=== PATIENT | male | born 1945 | race Caucasian/White ===

== ENCOUNTER 2023-10-14 08:20 | Inpatient (IN) | payer MEDICARE, SELFPAY ==
[2023-10-13] VITALS (10 sets, daily range): BP systolic 134–163; BP diastolic 74–95; BMI 31.4; BMI 30.6; BMI 30.7
[2023-10-13 14:02] LABS: % Basophils 0.2 % (0-2); % Eosinophils 1.1 % (0-6); % Immature Granulocytes 0.4 % (0-0.5); % Lymphocytes 11.5 % (20.5-51.1); % Monocytes 8.3 % (1.7-9.3); % Neutrophils 78.5 % (42.2-75.2); Absolute Eosinophils 0.1 10^3/uL (0-0.7); Absolute Lymphocytes 0.9 10^3/uL (1.2-3.4); Absolute Monocytes 0.7 10^3/uL (0.1-0.6); Absolute Neutrophils 6.3 10^3/uL (1.4-6.5); Hematocrit 43.2 % (39.0-52.0); Hemoglobin 15.1 g/dL (13.0-18.0); Mean Corpuscular Hgb 31.5 pg (27.0-31.0); Mean Platelet Volume 11.8 fL (7.4-10.4); Nucleated Red Blood Cells % 0 % (-); Platelet Count 168 10^3/uL (130-400); Red Cell Dist. Width 12.7 % (11.5-14.5); White Blood Cell Count 8.1 10^3/uL (4.8-10.8)
[2023-10-13 14:26] LABS: ALT (SGPT) 31 U/L (0-50); AST (SGOT) 33 U/L (17-59); Albumin 3.9 g/dl (3.5-5.0); Alkaline Phosphatase 90 U/L (38-126); Blood Urea Nitrogen 24 mg/dl (9-20); Carbon Dioxide 27 mmol/L (22-30); Chloride 108 mmol/L (98-107); Estimated Creatinine Clearance 60 ml/min; Glucose 95 mg/dl (70-99); Potassium 3.9 mmol/L (3.5-5.1); Sodium 139 mmol/L (135-145); Total Protein 6.1 g/dl (6.3-8.2); eGFR > 60.00
[2023-10-13 14:30] LABS: Troponin I 0.018 ng/ml
--- NOTE | 2023-10-13 15:20 | ED.GENMED ---
History of Present Illness
<TONY Castillo Jr. Last Filed: 10/15/23 09:11>
General
Chief Complaint: Chest Pain
Source: patient
Exam Limitations: none
Time Seen by Provider: 10/13/23 13:45
Nursing documentation reviewed up to this point in time: agreed with
History of Present Illness
History of Present Illness:
77-year-old male presenting to the emergency department today with concerns of an episode where he had chest pressure and heavy sweating when he was walking out of a store earlier today lasted for short period time but has been significantly
improving now asymptomatic prior to my assessment. He took his normal aspirin today which was a baby aspirin. Denies associated shortness of breath nausea or vomiting.
Review of Systems
<TONY Castillo Jr. Last Filed: 10/15/23 09:11>
Review of Systems
Allergies reviewed?: Yes
All Other Systems: ROS reviewed and negative except as documented in HPI and ROS
Phy Exam
<TONY Castillo Jr. Last Filed: 10/15/23 09:11>
Physical Exam
Physical Exam:
GENERAL: Alert , in no apparent distress
EYE: pupils equal and reactive
NECK: Supple, no significant adenopathy.
ENT: o/p clr, mmm.
CARDIAC: Regular rate and rhythm .
LUNGS: Clear breath sounds bilaterally, no acute respiratory distress, no wheezes/rales/rhonchi
ABDOMEN: Soft, without focal tenderness, no r/g, no cvat
NEUROLOGICAL: Alert and oriented, no focal neuro deficits
SKIN: Warm and dry, skin intact.
MUSCULOSKELETAL: No edema, well perfused.
PSYCH: Normal and appropriate interaction.
Scores
<TONY Castillo Jr. Last Filed: 10/15/23 09:11>
Heart Score for Chest Pain Patients
Heart Score for Chest Pain Patients: 7
Heart Score Risk: 72.7 % MACE over next 6 weeks
<Carmella Gale SCHEDULE MANAGER - Last Filed: 10/14/23 08:53>
Heart Score for Chest Pain Patients
STEMI patient?: No
History: Moderately Suspicious
ECG: Nonspecific Repolarization
Age: >/= 65 years
Risk Factors: >/= 3 Risk Factors or History of CAD
Troponin: >1 - <3 x Normal Limit
Heart Score for Chest Pain Patients: 7
Heart Score Risk: 72.7 % MACE over next 6 weeks
Course
<MIAH Castillo Jr.C - Last Filed: 10/15/23 09:11>
Orders/Labs/Results
Orders:
Orders
10/13/23
CAD Lower Risk of FARAH Video Routine
10/13/23 12:55
ECG [Electrocardiogram (*1)] Urgent
Reason for Study: Chest Pain
EKG- Treatment ONCE
10/13/23 13:32
Cardiac Monitoring- Treatment ONCE
10/13/23 13:45
Chest [CR Chest - 2 Views ] Urgent
Comment:
Reason For Exam: cp
10/13/23 13:46
Complete Blood Count/With Diff Urgent
Comprehensive Metabolic Panel Urgent
Troponin I Urgent
10/13/23 Dinner
Cholesterol Lowering
At Your Request: Full Participation
Cholesterol Lowering: Sodium, 2 Gram
10/13/23 15:55
EKG [Electrocardiogram (*1)] Urgent
Reason for Study: Chest Pain
EKG- Treatment ONCE
10/13/23 16:12
Troponin I Urgent
10/13/23 17:35
CARDIOLOGY CONSULT Urgent
Consulting Provider: Doug Treadwell
Was physician already notified: Yes
Reason for consult: trending up troponin, episode CP, diaphoresis
10/13/23 17:48
Heparin 4,000 units IV NOW STA
Nursing to Place Non Medication Order As Directed
Physician Order: PTT 6 hours after initial start of Heparin infusion
Above order entered?: Yes
10/13/23 17:52
PTT Urgent
Comment: Obtain baseline before beginning heparin infusion if not already collected
10/13/23 17:56
Admit/Transfer Patient As Directed
Co-Sign Provider:
Level of Care: Observation services
Assign to:: Telemetry
Physician / Group: roberto
Diagnosis: NSTEMI
Reason for Telemetry: Chest Pain syndromes
Date to Stop Telemetry: 10/15/23
Time to Stop Telemetry: 11:00
10/13/23 17:57
Code Status As Directed
Resuscitation Status: Full Code
PRN Pain Medication Management As Directed
May give lesser potent ordered pain med per pt: Yes
preference::
Protocol:: Medication orders for pain may be administered in a
manner that supports deferring to patient preference
when the pt is:
- Requesting an ordered lesser potent pain medication.
Least to most potent pain medications are defined
as: acetaminophen < NSAID < tramadol < opioids
(morphine, oxycodone, hydromorphone).
- Requesting a lesser dose of the same medication IF
ORDERED.
- Requesting a less intrusive route of administration
if both routes are prescribed by the provider (PO <
IV).
10/13/23 18:00
Heparin 42141 Units/250 ml 25,000 units in 250 ml IV PER PROTOCOL
Weight to be used for heparin protocol in kilograms (kg):: 90.9
Protocol:: Cardiac Tx/Acute Coronary
PTT Goal Range to be used:: PTT 73 to 111 seconds
Order type:: Initial
INITIAL Infusion Dose (UNITS/KG/hr) & then follow protocol:: 12 units/kg/hr
Infusion Dose in UNITS/hr & then follow protocol (UNITS/hr):: 1,000
INFUSION RATE in mL/hr & then follow protocol (mL/hr):: 10
PTT less than or equal to 64 seconds:: Increase rate by 200 units/hr (+ 2 mL/hr)
PTT 64.1 to 72.9 seconds:: Increase rate by 100 units/hr (+ 1 mL/hr)
PTT 73 to 111 seconds:: Target Range. No change in rate.
PTT 111.1 to 130.9 seconds:: Decrease rate by 100 units/hr (- 1 mL/hr)
PTT 131 to 199.9 seconds:: HOLD for 1 hr. Then decrease rate by 200 units/hr (- 2 mL/hr)
PTT greater than or equal to 200 seconds:: HOLD for 2 hrs & Notify Provider. Then decrease by 200 units/hr (-
2 mL/hr)
Lab follow-up:: Each change, PTT q6h until 2 consecutive are therapeutic. Then PTT
daily.
10/13/23 18:31
Nitroglycerin Sublingual [Nitrostat (Sublingual)] 0.4 mg SL [id number] PRN
imiquimod See Dose Instructions TOPICAL DAILYPRN PRN
10/13/23 18:31
VTE Contraindication Routine
VTE Mechanical Device Contraindication: Medical Contraindication
Pharmocologic Contraindication: Medical Contraindication
Heparin Protocol- PTT Orders As Directed
PTT per Heparin protocol: -Obtain CBC and baseline PTT - if not already collected.
-Obtain PTT 6 hours from start of infusion. Then, every 6 hours until 2 consecutive
PTT's are therapeutic. Then, PTT Daily.
-With each rate change, obtain PTT every 6 hours until 2 consecutive PTT's are
therapeutic. Then, PTT Daily.
Activity As Directed
Activity Level: As Tolerated
Notify MD As Directed
Notify physician if: PTT is greater than or equal to 200.
Records Request [Obtain Records] As Directed
Dates of Information to be Released: recent progress
Type of Information Requested: Progress Notes
Obtain Records from: [facility]
Vital Signs As Directed
Frequency: Per unit guidelines
10/13/23 19:00
Flush (0.9% Sodium Chloride) [Flush (Nss)] See Dose Instructions IV PER PROTOCOL
10/13/23 19:47
Troponin I Q6H
10/13/23 20:00
Metoprolol Xl [Toprol Xl] 25 mg PO BID
Pantoprazole [Protonix] 20 mg PO BID
10/13/23 22:00
Ezetimibe [Zetia] 10 mg PO HS
Rosuvastatin Calcium [Crestor] 10 mg PO HS
10/14/23 00:17
PTT Urgent
Troponin I Q6H
10/14/23 03:55
Basic Metabolic Panel IN AM
Complete Blood Count/No Diff IN AM
PTT Urgent
10/14/23 Breakfast
NPO
Allow oral meds: Yes
Allow clear liquids: Sips of Clears
10/14/23 08:00
Aspirin Low Dose EC [Aspir Low (Enteric Coated)] 81 mg PO DAILY
Calcium Polycarbophil [Fibercon] 625 mg PO DAILY
Cholecalciferol (Vitamin D3) [VITAMIN D3 (cholecalciferol)] 25 mcg PO DAILY
Multivitamin [Theragran] 1 tablet PO DAILY
10/15/23 04:08
Complete Blood Count/No Diff Q2D
Comment: notify provider: Platelet count < 130,000 or decrease by 50% from baseline
10/15/23 11:00
DC Protocol for Telemetry ONCE
10/17/23 06:00
Complete Blood Count/No Diff Q2D
Comment: notify provider: Platelet count < 130,000 or decrease by 50% from baseline
10/19/23 06:00
Complete Blood Count/No Diff Q2D
Comment: notify provider: Platelet count < 130,000 or decrease by 50% from baseline
10/21/23 06:00
Complete Blood Count/No Diff Q2D
Comment: notify provider: Platelet count < 130,000 or decrease by 50% from baseline
10/23/23 06:00
Complete Blood Count/No Diff Q2D
Comment: notify provider: Platelet count < 130,000 or decrease by 50% from baseline
10/25/23 06:00
Complete Blood Count/No Diff Q2D
Comment: notify provider: Platelet count < 130,000 or decrease by 50% from baseline
10/27/23 06:00
Complete Blood Count/No Diff Q2D
Comment: notify provider: Platelet count < 130,000 or decrease by 50% from baseline
10/29/23 06:00
Complete Blood Count/No Diff Q2D
Comment: notify provider: Platelet count < 130,000 or decrease by 50% from baseline
Abnormal Lab Results
10/13/23 10/13/23 10/13/23
13:46 16:12 19:47
RBC
MCH 31.5 H pg
(27.0-31.0)
MPV 11.8 H fL
(7.4-10.4)
Absolute Lymphs (auto) 0.9 L 10^3/uL
(1.2-3.4)
Absolute Monos (auto) 0.7 H 10^3/uL
(0.1-0.6)
Neutrophils % 78.5 H %
(42.2-75.2)
Lymphocytes % 11.5 L %
(20.5-51.1)
APTT
Chloride 108 H mmol/L
(98-107)
BUN 24 H mg/dl
(9-20)
Troponin I 0.062 H* D ng/ml 0.092 H* D ng/ml
Total Protein 6.1 L g/dl
(6.3-8.2)
10/14/23 10/14/23
00:17 03:55
RBC 4.58 L 10^6/uL
(4.70-6.10)
MCH 31.2 H pg
(27.0-31.0)
MPV 12.1 H fL
(7.4-10.4)
Absolute Lymphs (auto)
Absolute Monos (auto)
Neutrophils %
Lymphocytes %
APTT 80.3 H Sec 88.1 H Sec
(23.4-35.0) (23.4-35.0)
Chloride
BUN 23 H mg/dl
(9-20)
Troponin I 0.086 H* ng/ml
Total Protein
10/14/23 03:55
10/14/23 03:55
Vital Signs
Initial and Last Documented VS:
Initial Vital Signs
Temp Pulse Resp BP Pulse Ox
97.7 F 74 18 163/95 97
10/13/23 13:03 10/13/23 13:03 10/13/23 13:03 10/13/23 13:03 10/13/23 13:03
Last Documented Vital Signs
Temp Pulse Resp BP Pulse Ox
97.7 F 54 16 112/68 92
10/15/23 06:59 10/15/23 08:00 10/15/23 06:59 10/15/23 07:00 10/15/23 06:59
<Carmella Gale, SCHEDULE MANAGER - Last Filed: 10/14/23 08:53>
Orders/Labs/Results
Orders:
Orders
10/13/23
CAD Lower Risk of FARAH Video Routine
10/13/23 12:55
ECG [Electrocardiogram (*1)] Urgent
Reason for Study: Chest Pain
EKG- Treatment ONCE
10/13/23 13:32
Cardiac Monitoring- Treatment ONCE
10/13/23 13:45
Chest [CR Chest - 2 Views ] Urgent
Comment:
Reason For Exam: cp
10/13/23 13:46
Complete Blood Count/With Diff Urgent
Comprehensive Metabolic Panel Urgent
Troponin I Urgent
10/13/23 Dinner
Cholesterol Lowering
At Your Request: Full Participation
Cholesterol Lowering: Sodium, 2 Gram
10/13/23 15:55
EKG [Electrocardiogram (*1)] Urgent
Reason for Study: Chest Pain
EKG- Treatment ONCE
10/13/23 16:12
Troponin I Urgent
10/13/23 17:35
CARDIOLOGY CONSULT Urgent
Consulting Provider: Doug Treadwell
Was physician already notified: Yes
Reason for consult: trending up troponin, episode CP, diaphoresis
10/13/23 17:48
Heparin 4,000 units IV NOW STA
Nursing to Place Non Medication Order As Directed
Physician Order: PTT 6 hours after initial start of Heparin infusion
Above order entered?: Yes
10/13/23 17:52
PTT Urgent
Comment: Obtain baseline before beginning heparin infusion if not already collected
10/13/23 17:56
Admit/Transfer Patient As Directed
Co-Sign Provider:
Level of Care: Observation services
Assign to:: Telemetry
Physician / Group: roberto
Diagnosis: NSTEMI
Reason for Telemetry: Chest Pain syndromes
Date to Stop Telemetry: 10/15/23
Time to Stop Telemetry: 11:00
10/13/23 17:57
Code Status As Directed
Resuscitation Status: Full Code
PRN Pain Medication Management As Directed
May give lesser potent ordered pain med per pt: Yes
preference::
Protocol:: Medication orders for pain may be administered in a
manner that supports deferring to patient preference
when the pt is:
- Requesting an ordered lesser potent pain medication.
Least to most potent pain medications are defined
as: acetaminophen < NSAID < tramadol < opioids
(morphine, oxycodone, hydromorphone).
- Requesting a lesser dose of the same medication IF
ORDERED.
- Requesting a less intrusive route of administration
if both routes are prescribed by the provider (PO <
IV).
10/13/23 18:00
Heparin [id number] Units/250 ml 25,000 units in 250 ml IV PER PROTOCOL
Weight to be used for heparin protocol in kilograms (kg):: 90.9
Protocol:: Cardiac Tx/Acute Coronary
PTT Goal Range to be used:: PTT 73 to 111 seconds
Order type:: Initial
INITIAL Infusion Dose (UNITS/KG/hr) & then follow protocol:: 12 units/kg/hr
Infusion Dose in UNITS/hr & then follow protocol (UNITS/hr):: 1,000
INFUSION RATE in mL/hr & then follow protocol (mL/hr):: 10
PTT less than or equal to 64 seconds:: Increase rate by 200 units/hr (+ 2 mL/hr)
PTT 64.1 to 72.9 seconds:: Increase rate by 100 units/hr (+ 1 mL/hr)
PTT 73 to 111 seconds:: Target Range. No change in rate.
PTT 111.1 to 130.9 seconds:: Decrease rate by 100 units/hr (- 1 mL/hr)
PTT 131 to 199.9 seconds:: HOLD for 1 hr. Then decrease rate by 200 units/hr (- 2 mL/hr)
PTT greater than or equal to 200 seconds:: HOLD for 2 hrs & Notify Provider. Then decrease by 200 units/hr (-
2 mL/hr)
Lab follow-up:: Each change, PTT q6h until 2 consecutive are therapeutic. Then PTT
daily.
10/13/23 18:31
Nitroglycerin Sublingual [Nitrostat (Sublingual)] 0.4 mg SL [id number] PRN
imiquimod See Dose Instructions TOPICAL DAILYPRN PRN
10/13/23 18:31
VTE Contraindication Routine
VTE Mechanical Device Contraindication: Medical Contraindication
Pharmocologic Contraindication: Medical Contraindication
Heparin Protocol- PTT Orders As Directed
PTT per Heparin protocol: -Obtain CBC and baseline PTT - if not already collected.
-Obtain PTT 6 hours from start of infusion. Then, every 6 hours until 2 consecutive
PTT's are therapeutic. Then, PTT Daily.
-With each rate change, obtain PTT every 6 hours until 2 consecutive PTT's are
therapeutic. Then, PTT Daily.
Activity As Directed
Activity Level: As Tolerated
Notify MD As Directed
Notify physician if: PTT is greater than or equal to 200.
Records Request [Obtain Records] As Directed
Dates of Information to be Released: recent progress
Type of Information Requested: Progress Notes
Obtain Records from: [facility]
Vital Signs As Directed
Frequency: Per unit guidelines
10/13/23 19:00
Flush (0.9% Sodium Chloride) [Flush (Nss)] See Dose Instructions IV PER PROTOCOL
10/13/23 19:47
Troponin I Q6H
10/13/23 20:00
Metoprolol Xl [Toprol Xl] 25 mg PO BID
Pantoprazole [Protonix] 20 mg PO BID
10/13/23 22:00
Ezetimibe [Zetia] 10 mg PO HS
Rosuvastatin Calcium [Crestor] 10 mg PO HS
10/14/23 00:17
PTT Urgent
Troponin I Q6H
10/14/23 03:55
Basic Metabolic Panel IN AM
Complete Blood Count/No Diff IN AM
PTT Urgent
10/14/23 Breakfast
NPO
Allow oral meds: Yes
Allow clear liquids: Sips of Clears
10/14/23 08:00
Aspirin Low Dose EC [Aspir Low (Enteric Coated)] 81 mg PO DAILY
Calcium Polycarbophil [Fibercon] 625 mg PO DAILY
Cholecalciferol (Vitamin D3) [VITAMIN D3 (cholecalciferol)] 25 mcg PO DAILY
Multivitamin [Theragran] 1 tablet PO DAILY
10/15/23 04:08
Complete Blood Count/No Diff Q2D
Comment: notify provider: Platelet count < 130,000 or decrease by 50% from baseline
10/15/23 11:00
DC Protocol for Telemetry ONCE
10/17/23 06:00
Complete Blood Count/No Diff Q2D
Comment: notify provider: Platelet count < 130,000 or decrease by 50% from baseline
10/19/23 06:00
Complete Blood Count/No Diff Q2D
Comment: notify provider: Platelet count < 130,000 or decrease by 50% from baseline
10/21/23 06:00
Complete Blood Count/No Diff Q2D
Comment: notify provider: Platelet count < 130,000 or decrease by 50% from baseline
10/23/23 06:00
Complete Blood Count/No Diff Q2D
Comment: notify provider: Platelet count < 130,000 or decrease by 50% from baseline
10/25/23 06:00
Complete Blood Count/No Diff Q2D
Comment: notify provider: Platelet count < 130,000 or decrease by 50% from baseline
10/27/23 06:00
Complete Blood Count/No Diff Q2D
Comment: notify provider: Platelet count < 130,000 or decrease by 50% from baseline
10/29/23 06:00
Complete Blood Count/No Diff Q2D
Comment: notify provider: Platelet count < 130,000 or decrease by 50% from baseline
Abnormal Lab Results
10/13/23 10/13/23 10/13/23
13:46 16:12 19:47
RBC
MCH 31.5 H pg
(27.0-31.0)
MPV 11.8 H fL
(7.4-10.4)
Absolute Lymphs (auto) 0.9 L 10^3/uL
(1.2-3.4)
Absolute Monos (auto) 0.7 H 10^3/uL
(0.1-0.6)
Neutrophils % 78.5 H %
(42.2-75.2)
Lymphocytes % 11.5 L %
(20.5-51.1)
APTT
Chloride 108 H mmol/L
(98-107)
BUN 24 H mg/dl
(9-20)
Troponin I 0.062 H* D ng/ml 0.092 H* D ng/ml
Total Protein 6.1 L g/dl
(6.3-8.2)
10/14/23 10/14/23
00:17 03:55
RBC 4.58 L 10^6/uL
(4.70-6.10)
MCH 31.2 H pg
(27.0-31.0)
MPV 12.1 H fL
(7.4-10.4)
Absolute Lymphs (auto)
Absolute Monos (auto)
Neutrophils %
Lymphocytes %
APTT 80.3 H Sec 88.1 H Sec
(23.4-35.0) (23.4-35.0)
Chloride
BUN 23 H mg/dl
(9-20)
Troponin I 0.086 H* ng/ml
Total Protein
10/14/23 03:55
10/14/23 03:55
Vital Signs
Initial and Last Documented VS:
Initial Vital Signs
Temp Pulse Resp BP Pulse Ox
97.7 F 74 18 163/95 97
10/13/23 13:03 10/13/23 13:03 10/13/23 13:03 10/13/23 13:03 10/13/23 13:03
Last Documented Vital Signs
Temp Pulse Resp BP Pulse Ox
97.7 F 54 16 112/68 92
10/15/23 06:59 10/15/23 08:00 10/15/23 06:59 10/15/23 07:00 10/15/23 06:59
<Randolph Hernández Jr., PA-C - Last Filed: 10/15/23 09:11>
MDM/Problems Addressed
MDM/Problems Addressed:
77-year-old male presenting to the emergency department today with concerns of chest tightness and sweating when walking outside after going to the store earlier today since has resolved no associated shortness of breath nausea or vomiting. Upon
arrival blood pressure was elevated but improved during ER stay vital signs normal otherwise labs unremarkable initial EKG without obvious ischemic changes you are able to look at an old EKG from [facility] without significant changes. Initial
troponin negative. Concerning concerning story plan for repeated troponin and EKG.
5:00 PM: Received report from ISHMAEL Gibson, patient was awaiting second troponin.
First troponin was 0.018 and the second troponin is elevated 0.062. No sig change in EKG #2
Started on Heparin drip, Hospitalist and Cardiology notified.
Pt remains asymptomatic.
Cardiology consult in.
<Carmella Gale, SCHEDULE MANAGER - Last Filed: 10/14/23 08:53>
MDM/Problems Addressed
MDM/Problems Addressed:
77-year-old male presenting to the emergency department today with concerns of chest tightness and sweating when walking outside after going to the store earlier today since has resolved no associated shortness of breath nausea or vomiting. Upon
arrival blood pressure was elevated but improved during ER stay vital signs normal otherwise labs unremarkable initial EKG without obvious ischemic changes you are able to look at an old EKG from [facility] without significant changes. Initial
troponin negative.
5:00 PM: Received report from ISHMAEL Gibson, patient was awaiting second troponin.
First troponin was 0.018 and the second troponin is elevated 0.062. No sig change in EKG #2
Started on Heparin drip, Hospitalist and Cardiology notified.
Pt remains asymptomatic.
Cardiology consult in.
<Carmella Gale SCHEDULE MANAGER - Last Filed: 10/14/23 08:53>
*Critical Care Note
Total Time (30-74mins, 75-104mins- exclusive of procedures): Not Applicable
ED Attending Note
<MIAH Castillo Jr.C - Last Filed: 10/15/23 09:11>
-
Portions of this chart may have been created with voice recognition software.� Occasional wrong word or��sound alike� substitutions may have occurred due to the inherent limitations of voice recognition software.
Discharge Plan
Departure
Patient Disposition: Admit
Date of Disposition: 10/13/23
Time of Disposition: 17:35
Admit to: Telemetry
Presentation/result/management discussed w/ accepting MD/DO: Hospitalist
Patient with high blood pressure during this ER visit?: No
Condition: Good
Covid-19: Not Applicable
Discharge Problem:
Chest pain, Elevated troponin
Interventions
Interventions:
*Risk Screen - Suicide Last Done: 10/13/23 20:20
*General Assessment Last Done: 10/13/23 13:03
*Neglect/Abuse Screening Last Done: 10/13/23 13:03
ED- Fall Risk Assessment Last Done: 10/13/23 13:45
*ED COVID-19 Vaccine History Last Done: 10/13/23 20:20
*Nursing Disposition Last Done: 10/13/23 18:48
ED- Cardiac Assessment Last Done: 10/13/23 13:45
Discharge Date and Time
Discharge Date/Time: 10/13/23 18:48
[2023-10-13 16:55] LABS: Troponin I 0.062 ng/ml
--- NOTE | 2023-10-13 18:00 | HPS.HSE ---
Addendum entered and electronically signed by Lei Gallagher MD 10/13/23 18:05:
Patient's sales representative rural power is Dr. Regan Poon at [facility]. Records requested.
Original Note:
Family Physician
-
Family Physician: * NONE
Chief Complaint
-
chest pressure
History of Present Illness
77-year-old male with past medical history of CAD s/p 3 stents 10 years ago, atrial fibrillation status post ablation with loop recorder no longer on Eliquis, hyperlipidemia, prostate cancer status post radiation, kidney stones, presenting with
episode of chest pressure and sweating while he was driving earlier today lasting for few hours. Pain did not radiate anywhere. Now denies any symptoms. He denies shortness of breath or nausea or vomiting.
He has been having more episodes of heartburn recently.
He saw a sales representative rural power in [place] in July and at that time no events were seen on his loop recorder so Eliquis was stopped. His regular sales representative rural power is at [facility].
He denies smoking. He drinks alcohol occasionally. Denies any other drugs.
Multiple family members on both sides of his family with heart disease.
Medical History
Past Medical History
Past Medical History: Reports Other (CAD s/p 3 stents 10 years ago, atrial fibrillation status post ablation with loop recorder no longer on Eliquis, hyperlipidemia, prostate cancer status post radiation, kidney stones,)
Past Surgical History: Reports None and Other
Social History
Tobacco: Non-smoker
Alcohol: Occasional
Drug: None
Family History
Family History: CAD
Allergies / Home Medications
Allergies reflects when Allergies were last updated in [facility].
Home Medications with original date entered in [facility]
Allergy/Medication List:
Allergies
Allergy/AdvReac Type Severity Reaction Status Date / Time
No Known Allergies Allergy Verified 10/13/23 13:03
Home Medications
aspirin 81 mg tablet,delayed release 81 mg PO DAILY 10/13/23
cholecalciferol (vitamin D3) 25 mcg (1,000 unit) tablet (Vitamin D3) 25 mcg PO DAILY 10/13/23
ezetimibe 10 mg tablet 10 mg PO HS 10/13/23
imiquimod 5 % topical cream packet 1 applic topical DAILYPRN PRN basal cell outbreak 10/13/23
methylcellulose (laxative) 500 mg tablet (Citrucel) 500 mg PO DAILY 10/13/23
metoprolol succinate 25 mg tablet,extended release 24 hr 25 mg PO BID 10/13/23
pantoprazole 20 mg tablet,delayed release 20 mg PO BID 10/13/23
rosuvastatin 5 mg tablet 10 mg PO HS 10/13/23
therapeutic multivitamin 1 tab PO DAILY 10/13/23
Review of Systems
-
History Source: Patient
A 12 point ROS was completed and negative except as noted: Yes
Constitutional: Reports No Symptoms
EENT: Reports No Symptoms
Respiratory: Reports No Symptoms
Cardiac: Reports See HPI
Abdomen/GI: Reports No Symptoms
: Reports No Symptoms
Musculoskeletal: Reports No Symptoms
Skin: Reports No Symptoms
Neurological: Reports No Symptoms
Endocrine: Reports No Symptoms
Hematologic/Lymphatic: Reports No Symptoms
Psych: Reports No Symptoms
Physical Exam
Vital Signs
Vital Signs
Temp Pulse Resp BP Pulse Ox
97.7 F 64 18 157/82 98
10/13/23 13:03 10/13/23 16:45 10/13/23 16:45 10/13/23 16:25 10/13/23 15:00
Physical Exam
General: Well Developed, Well Nourished and No Apparent Distress
HEENT: NormoCephalic, Moist mucous membranes and Atraumatic
Respiratory: Clear
Cardiac: S1/S2 and Regular Rhythm; No Murmur or Rub
GI: Soft, Non Tender, Non Distended and Normal Bowel Sounds; No Organomegaly
Rectal: Deferred by Provider
Musculoskeletal: No Clubbing, No Cyanosis and No Edema
Skin: No Rash
Neuro: Nonfocal/grossly intact
Laboratory Results
-
10/13/23 13:46
10/13/23 13:46
Laboratory Results
Total Bilirubin 1.0 mg/dl (0.2-1.3) 10/13/23 13:46
AST 33 U/L (17-59) 10/13/23 13:46
ALT 31 U/L (0-50) 10/13/23 13:46
Alkaline Phosphatase 90 U/L (38-126) 10/13/23 13:46
Troponin I 0.062 ng/ml H* D 10/13/23 16:12
Data Reviewed
-
Lab Data: Labs Reviewed by me
Old Records: Reviewed
Impression/Plan
-
IMPRESSION:
PLAN:
# Chest pressure secondary to Possible NSTEMI
# History of CAD with 3 stents 10 years ago
-No chest pain currently
-EKG shows sinus rhythm with first-degree AV block with PACs, LVH
-Troponin of 0.018 increased to 0.062
-Trend troponins until peak
-Continue aspirin, statin
-Heparin drip
-Continue metoprolol
-N.p.o. past midnight for potential catheterization
-Need to obtain records from [facility]
-Cardiology consulted
Paroxysmal atrial fibrillation status post ablation with loop recorder
-No longer on Eliquis
Hyperlipidemia
-Continue statin, Zetia
GERD
-Continue Protonix
Prostate cancer status post radiation
Full code
DVT prophylaxis-heparin drip
N.p.o. past midnight
[2023-10-13] MEDS: HEPARIN 4000 UNITS IV (18:04)
[2023-10-13 18:15] LABS: APTT 27.8 Sec (23.4-35.0)
[2023-10-13 20:17] LABS: Troponin I 0.092 ng/ml
[2023-10-13] MEDS: TOPROL XL 25 MG PO (20:59)
[2023-10-13] MEDS: PROTONIX 20 MG PO (20:59)
[2023-10-13] MEDS: CRESTOR 10 MG PO (20:59)
[2023-10-13] MEDS: ZETIA 10 MG PO (20:59)
--- NOTE | 2023-10-13 23:47 | PTCARENOTE ---
Pt. received from 3[facility] in wheelchair. Pt. arrived with heparin drip, AOx3, VS WNL, tele reading NSR with a 1st degree AV block. at bedside. Pt. has no complaints of CP. RN conducted education/plan of care. Pt. verbalized understanding. Continuing
to monitor pt at this time.
[2023-10-14] VITALS (17 sets, daily range): BP systolic 106–160; BP diastolic 61–101
[2023-10-14 00:39] LABS: APTT 80.3 Sec (23.4-35.0)
[2023-10-14 00:51] LABS: Troponin I 0.086 ng/ml
[2023-10-14 04:31] LABS: Hematocrit 40.7 % (39.0-52.0); Hemoglobin 14.3 g/dL (13.0-18.0); Mean Corp Hgb Conc. 35.1 g/dL (33.0-37.0); Mean Corpuscular Hgb 31.2 pg (27.0-31.0); Mean Corpuscular Volume 88.9 fL (80.0-94.0); Mean Platelet Volume 12.1 fL (7.4-10.4); Platelet Count 168 10^3/uL (130-400); Red Blood Cell Count 4.58 10^6/uL (4.70-6.10); Red Cell Dist. Width 12.8 % (11.5-14.5); White Blood Cell Count 6.9 10^3/uL (4.8-10.8)
[2023-10-14 04:40] LABS: APTT 88.1 Sec (23.4-35.0)
[2023-10-14 04:55] LABS: Blood Urea Nitrogen 23 mg/dl (9-20); Calcium 9.4 mg/dl (8.4-10.2); Carbon Dioxide 26 mmol/L (22-30); Chloride 107 mmol/L (98-107); Estimated Creatinine Clearance 66 ml/min; Glucose 93 mg/dl (70-99); Potassium 4.1 mmol/L (3.5-5.1); Sodium 137 mmol/L (135-145); eGFR > 60.00
[2023-10-14] MEDS: PROTONIX 20 MG PO ×2 (08:20→20:22)
[2023-10-14] MEDS: ASPIR LOW (ENTERIC COATED) 81 MG PO (08:20)
[2023-10-14] MEDS: TOPROL XL 25 MG PO ×2 (08:21→20:22)
--- NOTE | 2023-10-14 08:35 | CON.CAR ---
Addendum entered and electronically signed by Derek Ritchie MD 10/14/23 16:23:
I saw and evaluated the patient. I reviewed the resident�s note and agree with findings and plan as documented in the resident�s note.
Briefly, 77-year-old male past medical history multivessel CAD with remote history of PCI, atrial fibrillation status post ablation who presents following episode of chest discomfort found to have rising troponin consistent with NSTEMI
Patient tells me that he was shopping at [employer] yesterday morning when he developed an episode of chest tightness and diaphoresis
His symptoms persisted for over an hour and at that point he proceeded to [place] emergency department for evaluation
Twelve-lead ECGs reviewed, not ischemic appearing
Initial troponin was within normal limits but then started to rise with a peak at 0.092
Physical exam is unremarkable
Plan for medical management with aspirin, high intensity statin, beta-madelyn, heparin drip
We will arrange for invasive coronary angiography
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
Original Note:
Consultation
Consultation Request
Date/Time Consultation Requested: 10/14/23
Date/Time Consultation Performed: 10/14/23
Requesting Provider: Carmella Gale NP
Performing Provider:
Reason for Consultation:
Medical History
-
Chief Complaint: Chest Pressure
History of Present Illness:
This is a 77 year old male with PMH of CAD x 3 stent 10 years ago, atrial fibrillation status post ablation with loop recorder no longer on Eliquis, hyperlipidemia, prostate cancer status post radiation, kidney stones presents to the ED with
complaints of chest pressure/discomfort that started yesterday and lasted for 1.5 hours as he was driving to a store along with sweating. These symptoms resolved once arriving to the ER. He states that his prior MIs did not feel this way. He did not
radiating pain, headaches, dizziness or vision changes.
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 Schrader and a group leader at [facility] .
He tries to maintain an active lifestyle by walking 3 times a day.
Past Medical History
Past Medical History: Arrhythmias (Atrial fibrillation s/p ablation with loop recorder), CAD (stent x3), Cancer (prostate cancer s/p radiation), Hypercholesterolemia and Other (nephrolithiasis)
Social History
Tobacco: Non-Smoker
Alcohol: Occasional
Personal:
Living: With Family
Family History
Family History: CAD
Allergies / Home Medications
Allergy/AdvReac Type Severity Reaction Status Date / Time
No Known Allergies Allergy Verified 10/13/23 13:03
�Medication �Instructions �Recorded �Confirmed �Type
aspirin 81 mg tablet,delayed 81 mg PO DAILY 10/13/23 10/13/23 History
release
cholecalciferol (vitamin D3) 25 25 mcg PO DAILY 10/13/23 10/13/23 History
mcg (1,000 unit) tablet (Vitamin
D3)
ezetimibe 10 mg tablet 10 mg PO HS 10/13/23 10/13/23 History
imiquimod 5 % topical cream packet 1 applic topical DAILYPRN PRN 10/13/23 10/13/23 History
basal cell outbreak
methylcellulose (laxative) 500 mg 500 mg PO DAILY 10/13/23 10/13/23 History
tablet (Citrucel)
metoprolol succinate 25 mg 25 mg PO BID 10/13/23 10/13/23 History
tablet,extended release 24 hr
pantoprazole 20 mg tablet,delayed 20 mg PO BID 10/13/23 10/13/23 History
release
rosuvastatin 5 mg tablet 10 mg PO HS 10/13/23 10/13/23 History
therapeutic multivitamin 1 tab PO DAILY 10/13/23 10/13/23 History
Review of Systems
-
Constitutional: No Symptoms
EENT: No Symptoms
Cardiac: No Symptoms
Abdomen/GI: No Symptoms
Physical Exam
Vital Signs
Temp Pulse Resp BP Pulse Ox
97.7 F 60 16 154/73 97
10/14/23 06:42 10/14/23 07:30 10/14/23 06:42 10/14/23 06:45 10/14/23 03:48
Lab Results
10/14/23 03:55
10/14/23 03:55
Troponin I Cancelled 10/14/23 06:31
Physical Exam
General: No Apparent Distress
HEENT: Normocephalic and Moist Mucous Membranes
Respiratory: Clear, Wheezes and Crackles
Cardiac: S1/S2 and Regular Rhythm; Negative Murmur or Rub
GI: Soft, Non Tender and Non Distended
Musculoskeletal: No Cyanosis and No Edema
Skin: Warm and Dry
Neuro: Awake, Alert and Oriented
Psych: Calm
Impression / Plan
-
Impression: This is a 77 year old male with PMH of CAD x 3 stent 10 years ago, atrial fibrillation status post ablation with loop recorder no longer on Eliquis, hyperlipidemia, prostate cancer status post radiation, kidney stones presents to the ED
with complaints of chest pressure/discomfort that started yesterday and lasted for 1.5 hours as he was driving to a store along with sweating. Troponins peaked on 10/12 and cardiology consulted.
Assessment:
NSTEMI
CAD s/p 3 stents 10 years ago
Atrial fibrillation status post ablation with loop recorder no longer on Eliquis,
Hyperlipidemia,
Prostate cancer status post radiation,
Kidney stones
GERD
Plan:
-CXR on 10/12: showed no acute cardiopulmonary process
-EKG on 10/12: sinus rhythm with 1st degree AV block with PACs and LVH
-Troponins downtrending; peaked yesterday at 0.092 and then decreased to 0.086
-Echo ordered
-Plan for cath today; discussion had with patient about cardiac catheterization with attending
-Off of Eliquis prior to admission at the recommendation of their [place] group leader, currently on ASA 81mg daily
-Continue heparin
--- NOTE | 2023-10-14 08:55 | W.PN.HOSP.TC ---
Today's Communication/Plan
-
Await cardiology input
Assessment / Plan
Assessment / Plan
Gen-AAOx3, NAD
HEENT-NC, AT, anicteric, clear oral mm
Neck-supple
CV-reg, no M, +S1/S2
Lungs-clear B/L
Abd-soft, NT, ND
Ext-no edema
Musculoskeletal-no cyanosis, clubbing
Skin-warm and dry
Neuro-grossly non-focal
Psych-calm, cooperative
NSTEMI -continue IV heparin. Currently n.p.o., awaiting cardiology consult. Anticipate catheterization.
CAD -with prior stents.
Atrial fibrillation -unknown type. Treated with ablation. Taken off Eli[employer] Last Chance as loop recorder no longer detected atrial fibrillation.
Hyperlipidemia -continue rosuvastatin, Zetia.
history of prostate cancer
Nephrolithiasis
Obesity due to excess calories
Full code
Anticipated Discharge: 24 - 48 hours
Subjective/Interval History
-
Date of Service: October 14, 2023
Patient seen and examined. Denies further chest pain or symptoms. No complaints.
Objective Data
-
Labs:
Laboratory Results
10/14/23 10/14/23
00:17 03:55
WBC 6.9
Hgb 14.3
Hct 40.7
Plt Count 168
APTT 80.3 H 88.1 H
Sodium 137
Potassium 4.1
Chloride 107
Carbon Dioxide 26
BUN 23 H
Creatinine 1.0
Glucose 93
Calcium 9.4
Vital Signs:
Vital Signs
Temp Pulse Resp BP Pulse Ox
97.7 F 60 16 154/73 97
10/14/23 06:42 10/14/23 07:30 10/14/23 06:42 10/14/23 06:45 10/14/23 03:48
I&O
10/13/23 10/14/23 10/15/23
06:59 06:59 06:59
Intake Total 150 / 150
Balance 150 / 150
Review of Systems
-
History Source: Patient
All other systems: Reviewed and negative
--- NOTE | 2023-10-14 09:30 | PTCARENOTE ---
Received patient resting in bed, assisted to the bathroom. IV heparin infusing at 1000 units/hr, last PTT at a therapeutic level. Patient denies any chest pain or sob. Patient is concerned about his blood pressure running higher than usual, given AM
meds otherwise NPO. Awaiting to be seen by cardiology for potential cardiac cath today.
--- NOTE | 2023-10-14 11:06 | CM ---
CM following for DC planning needs.
Met w/ patient, spouse Rosalia in the hallway. Pt. was ambulating ad herminio.
Pt. is functionally indep. at baseline w/ ADLs, mobility.
Anticipated DC plan is for home, no needs.
--- NOTE | 2023-10-14 13:38 | PTCARENOTE ---
Remains NPO, IV heparin infusing at 1000 units/hr, ambulating in the halls with his , chest pain free. Report given to the tailings dam laborer, patient sent for cardiac cath.
--- NOTE | 2023-10-14 15:05 | ITS.CL.CATH ---
Local Delivery Truck Driver - Catheterization
Cardiac Catheterization
Procedure Report:
CARDIAC CATHETERIZATION REPORT
Date of Procedure: 10/14/2023
Referring: Derek Staton M.D.
INDICATION: Known coronary artery disease, troponin elevation.
PROCEDURE:
1. Left heart catheterization
2. Coronary angiography.
ACCESS:
6 Burmese right radial artery.
CATHETERS:
1. 5 Burmese JR4.
2. 5 Burmese JL 3.5.
HEMODYNAMIC DATA
Weight (kg): 88.8
AO (s/d/x, mmHg): 131/79/102
LV (s/x mmHg): 130/15
LEFT VENTRICULOGRAPHY: Not performed.
CORONARY ANGIOGRAPHY
Dominance: Right.
Left Main: Normal size, trifurcating vessel. There is no coronary artery disease.
LAD: Normal size vessel giving rise to 2 diagonals. There is a 30% ostial tapering. There is a patent stent in the proximal/mid LAD, jailing the origin of D1 with 30% in-stent restenosis. The first diagonal is a 1-1.5 mm vessel. There is a
90% lesion in the proximal margin of this artery but ELIZABETH-3 flow. The second diagonal is a small to medium sized vessel with a nearly vertical origin that points backwards. There is a 30% lesion in the ostium of this vessel.
Ramus: There is a small size vessel. There is no coronary artery disease.
Circumflex: Normal size, nondominant vessel giving rise to 2 obtuse marginals. A patent stent is visible from the proximal circumflex into OM1. There are luminal irregularities throughout the body of the circumflex.
RCA: Large size, dominant vessel with a large posterolateral arcade. There is a 40% lesion in the ostium of the RPDA.
INTERVENTION(S)
None.
Closure Device: Vascular band.
Radiation (mGy): 403.44
DAP (cm2.Gy): 37.7713
Fluoroscopy time (minutes): 2.2
Sedation time (minutes): 20
CONCLUSIONS
1. Right dominant circulation with a 40% lesion in the ostomy of the RPDA, luminal irregularities in the circumflex, 30% ostial tapering of the LAD, a patent stent in the proximal/mid LAD that jails the first diagonal with 30% in-stent restenosis,
a culprit 90% lesion in the small first diagonal (1.5 mm) and a 30% lesion in the ostium of a vertically oriented D2.
2. Top normal filling pressures (LVEDP = 15 mmHg at 88.8 kg).
RECOMMENDATIONS:
1. Expectant management after cardiac catheterization via right radial approach.
2. Limited weight bearing on the right wrist for one week.
3. Medical management of occlusive diagonal disease. We will add calcium channel madelyn versus long-acting nitrate.
4. Aggressive risk factor modification.
5. Consider dual antiplatelet therapy as part of medical management.
6. Echocardiogram ordered and pending.
Copy to: Derek Staton M.D.
Doug Ventura DO, FACC, FACP
[2023-10-14] MEDS: NSS 1000 IV (15:11)
[2023-10-14] MEDS: VITAMIN D3 (cholecalciferol) 25 MCG PO (15:14)
[2023-10-14] MEDS: THERAGRAN 1 TABLET PO (15:14)
[2023-10-14] MEDS: FIBERCON 625 MG PO (15:15)
[2023-10-14] MEDS: IMDUR (EXTENDED RELEASE) 30 MG PO (15:40)
--- NOTE | 2023-10-14 15:53 | PTCARENOTE ---
Received patient from the concrete laborer at 1445 after cardiac cath via right radial artery. Radial band in place, which is dry and intact. Pulse ox of 96% on the right hand. Denies any chest pain or discomfort, monitoring VS. Call burnett in reach, at
the bedside. Patient started on imdur as ordered.
--- NOTE | 2023-10-14 21:03 | PTCARENOTE ---
Pt. received at change of shift. Pt. seen and assessed in room with at chair side. R radial site c/d/i. Pt. AOx3, no complaints of pain at this time. Pt. verbalizes understanding of plan of care. VS WNL. Continuing to monitor at this time.
[2023-10-14] MEDS: CRESTOR 10 MG PO (21:42)
[2023-10-14] MEDS: ZETIA 10 MG PO (21:42)
[2023-10-15 04:00] VITALS: BP 109/60
[2023-10-15 04:32] LABS: Hematocrit 37.6 % (39.0-52.0); Hemoglobin 13.3 g/dL (13.0-18.0); Mean Corp Hgb Conc. 35.4 g/dL (33.0-37.0); Mean Corpuscular Hgb 32.1 pg (27.0-31.0); Mean Corpuscular Volume 90.8 fL (80.0-94.0); Mean Platelet Volume 11.7 fL (7.4-10.4); Platelet Count 145 10^3/uL (130-400); Red Blood Cell Count 4.14 10^6/uL (4.70-6.10); Red Cell Dist. Width 12.6 % (11.5-14.5); White Blood Cell Count 6.4 10^3/uL (4.8-10.8)
[2023-10-15 04:53] LABS: Blood Urea Nitrogen 31 mg/dl (9-20); Calcium 9.3 mg/dl (8.4-10.2); Carbon Dioxide 27 mmol/L (22-30); Chloride 107 mmol/L (98-107); Estimated Creatinine Clearance 60 ml/min; Glucose 134 mg/dl (70-99); Potassium 3.7 mmol/L (3.5-5.1); Sodium 136 mmol/L (135-145); eGFR > 60.00
[2023-10-15 06:00] VITALS: BMI 30.7
[2023-10-15 07:00] VITALS: BP 112/68
--- NOTE | 2023-10-15 07:19 | PTCARENOTE ---
Tele showed 25 beats of Vtach. notified.
--- NOTE | 2023-10-15 08:15 | W.PN.HOSP.TC ---
Today's Communication/Plan
-
Echocardiogram
Assessment / Plan
Assessment / Plan
Gen-AAOx3, NAD
HEENT-NC, AT, anicteric, clear oral mm
Neck-supple
CV-reg, no M, +S1/S2
Lungs-clear B/L
Abd-soft, NT, ND
Ext-no edema
Musculoskeletal-no cyanosis, clubbing
Skin-warm and dry
Neuro-grossly non-focal
Psych-calm, cooperative
NSTEMI -symptoms resolved. Underwent catheterization yesterday, showing right dominant circulation with 90% culprit lesion in the small first diagonal. No intervention was needed. Maximal medical therapy recommended. Awaiting echocardiogram.
Cardiology to see today. Troponin peaked at 0.092.
Isosorbide mononitrate added.
CAD -with prior stents.
Atrial fibrillation -unknown type. Treated with ablation. Taken off [employer] as loop recorder no longer detected atrial fibrillation.
Hyperlipidemia -continue rosuvastatin, Zetia.
history of prostate cancer
Nephrolithiasis
Obesity due to excess calories
Full code
Dispo -possible discharge later today if cleared by cardiology. Outpatient follow-up.
Anticipated Discharge: Today
Subjective/Interval History
-
Date of Service: October 15, 2023
Patient seen and examined. Denies further symptoms. Feels fine. No complaints.
Objective Data
-
Labs:
Laboratory Results
10/15/23
04:08
WBC 6.4
Hgb 13.3
Hct 37.6 L
Plt Count 145
Sodium 136
Potassium 3.7
Chloride 107
Carbon Dioxide 27
BUN 31 H
Creatinine 1.1
Glucose 134 H
Calcium 9.3
Vital Signs:
Vital Signs
Temp Pulse Resp BP Pulse Ox
97.7 F 54 16 112/68 92
10/15/23 06:59 10/15/23 08:00 10/15/23 06:59 10/15/23 07:00 10/15/23 06:59
I&O
10/14/23 10/15/23 10/16/23
06:59 06:59 06:59
Intake Total 150 / 150 880 / 880
Balance 150 / 150 880 / 880
Review of Systems
-
History Source: Patient
All other systems: Reviewed and negative
[2023-10-15] MEDS: ASPIR LOW (ENTERIC COATED) 81 MG PO (09:06)
[2023-10-15] MEDS: TOPROL XL 25 MG PO (09:07)
[2023-10-15] MEDS: PROTONIX 20 MG PO (09:07)
[2023-10-15] MEDS: IMDUR (EXTENDED RELEASE) 30 MG PO (09:07)
[2023-10-15] MEDS: FIBERCON 625 MG PO (09:07)
[2023-10-15] MEDS: THERAGRAN 1 TABLET PO (09:07)
[2023-10-15] MEDS: VITAMIN D3 (cholecalciferol) 25 MCG PO (09:08)
[2023-10-15] MEDS: FLUSH (NSS) 1 FLUSH IV (09:08)
--- NOTE | 2023-10-15 09:39 | PTCARENOTE ---
Received patient this morning oob ambulating in his room. Denies any chest pain, sob or palpitations. Right wrist dressing is dry and intact. Patient having an echo done at the bedside now.
--- NOTE | 2023-10-15 10:39 | W.PN.CARDCBS ---
Today's Communication / Plan
-
add plavix
imdur started
cardiac rehab
check CVE. increase crestor, continue zetia
replete K/mag. continue BB
await echo
Impression / Plan
-
Primary Medical Affairs Director: Dr. Regan Poon of [place], also follows with pipeline dispatch operator in [place]
Impression: This is a 77 year old male with PMH of CAD x 3 stent 10 years ago, atrial fibrillation status post ablation with loop recorder no longer on Eliquis, hyperlipidemia, prostate cancer status post radiation, kidney stones presents to the ED
with complaints of chest pressure/discomfort that started yesterday and lasted for 1.5 hours as he was driving to a store along with sweating. Troponins peaked on 10/12 and cardiology consulted.
Assessment:
NSTEMI, peak trop 0.092, culprit small 1st diagonal, medical mgmt
CAD s/p 3 stents 10 years ago
Atrial fibrillation status post ablation with loop recorder, no longer on Eliquis
NSVT
Hyperlipidemia
Prostate cancer status post radiation
Kidney stones
GERD
Basal cell CA
ECHO 10/15/23: pending
Plan:
-Patient presented with chest discomfort and ruled in for NSTEMI with peak trop 0.09.
-underwent cardiac cath 10/13 with culprit small 1st diagonal, with plan for medical mgmt. reviewed results of cath with patient/ at bedside today
-d/w interventional cardiology. will continue asa and add plavix to regimen. he had previously been on eliquis however has been off as he has loop recorder in place without recurrent afib noted per [place] pipeline dispatch operator
-R wrist site NTTP, c/d/i
-imdur 30mg daily was added post cath
-had 25 beat run of NSVT overnight. patient sleeping and asymptomatic during. replete K and mag. patient's reports history of NSVT by loop noted in past. continue toprol 25mg BID
-await results of echo 10/14
-check CVE. increase crestor to 40mg QPM for high intensity statin in setting of IL. continue zetia
-cardiac rehab
-he reports a feeling of 'softer voice' and increased phlegm recently. await echo results. CXR negative for acute abnormalities. consider check proBNP however does not examine grossly volume overloaded
-ambulate around unit
-for possible DC later today vs in AM
-OP cardiac follow up arranged with Dr. Poon and will provide discs of cath/echo to take to his pipeline dispatch operator
-d/w nursing. d/w patient and at bedside
Progress Note - Medical Affairs Director
Subjective
Date of Service: October 15, 2023
feels well. no CP overnight.
Objective
Labs:
10/15/23 04:08
10/15/23 04:08
Labs
Hgb 13.3 g/dL (13.0-18.0) 10/15/23 04:08
Hct 37.6 % (39.0-52.0) L 10/15/23 04:08
Plt Count 145 10^3/uL (130-400) 10/15/23 04:08
APTT 88.1 Sec (23.4-35.0) H 10/14/23 03:55
Sodium 136 mmol/L (135-145) 10/15/23 04:08
Potassium 3.7 mmol/L (3.5-5.1) 10/15/23 04:08
BUN 31 mg/dl (9-20) H 10/15/23 04:08
Creatinine 1.1 mg/dL (0.7-1.3) 10/15/23 04:08
Glucose 134 mg/dl (70-99) H 10/15/23 04:08
Troponins
10/13/23 10/13/23 10/13/23
13:46 16:12 19:47
Troponin I 0.018 0.062 H* D 0.092 H* D
10/14/23 10/14/23
00:17 06:31
Troponin I 0.086 H* Cancelled
Vital Signs and I&O:
Vital Signs
Temp Pulse Resp BP Pulse Ox
97.7 F 54 16 112/68 92
10/15/23 06:59 10/15/23 08:00 10/15/23 06:59 10/15/23 07:00 10/15/23 06:59
Vital Signs
Temp Pulse Resp BP Pulse Ox
97.7 F 54 16 112/68 92
10/15/23 06:59 10/15/23 08:00 10/15/23 06:59 10/15/23 07:00 10/15/23 06:59
Intake & Output
10/13/23 10/14/23 10/15/23 10/16/23
07:59 07:59 07:59 07:59
Intake Total 150 / 150 880 / 880
Balance 150 / 150 880 / 880
Physical Exam
Physical Exam
GEN: No distress, awake, alert, oriented x3
HEENT: supple, anicteric, mmm, eomi
LUNGS: few fine crackles at bases, no wheezes
CV: Reg, S1/S2, no murmur
ABD: soft, BS+, NT/ND
EXT: No cyanosis, clubbing, edema
NEURO: Gross non-focal
SKIN: Warm, pink, dry. No rash. R wrist site c/d/i
[2023-10-15 10:57] VITALS: BP 105/59
[2023-10-15] MEDS: KCL 20 MEQ PO (11:42)
[2023-10-15 12:13] LABS: Magnesium 1.8 mg/dl (1.6-2.3)
[2023-10-15] MEDS: MAGNESIUM OXIDE 500 MG PO (13:36)
[2023-10-15] MEDS: PLAVIX 300 MG PO (13:36)
[2023-10-15 14:26] LABS: HDL Cholesterol 30 mg/dl; LDL Cholesterol, Calculated 38 mg/dl; Total Cholesterol 88 mg/dl (50-199); Triglyceride 100 mg/dl (10-149); Very Low Density Lipoprotein 20 mg/dl (0-30)
--- NOTE | 2023-10-15 14:42 | W.DS.TRANS ---
DC Summary - Social Organization Professor
-
Discharge Instructions:
Discharge Diagnosis/Procedures NSTEMI, cardiac cath
Diet Low Cholesterol,Low Sodium
Activity As tolerated
Driving Restrictions No driving for 24 hours
Bathing Restrictions OK to Shower
Blood Work CBC, BMP/magnesium in 1-2 weeks
Other Services Cardiac Rehab
Instructions:
Stand-Alone Forms: DC Instructions- Cath/EP Lab
Changes to Home Medications: Yes
Discharge Medications:
DC Medications w/original date entered in [facility]
aspirin 81 mg tablet,delayed release 81 mg PO DAILY 10/13/23
cholecalciferol (vitamin D3) 25 mcg (1,000 unit) tablet (Vitamin D3) 25 mcg PO DAILY 10/13/23
ezetimibe 10 mg tablet 10 mg PO HS 10/13/23
imiquimod 5 % topical cream packet 1 applic topical DAILYPRN PRN basal cell outbreak 10/13/23
methylcellulose (laxative) 500 mg tablet (Citrucel) 500 mg PO DAILY 10/13/23
metoprolol succinate 25 mg tablet,extended release 24 hr 25 mg PO BID 10/13/23
pantoprazole 20 mg tablet,delayed release 20 mg PO BID 10/13/23
therapeutic multivitamin 1 tab PO DAILY 10/13/23
clopidogrel 75 mg tablet 75 mg PO DAILY #30 tabs 10/15/23
isosorbide mononitrate 30 mg tablet,extended release 24 hr 30 mg PO DAILY #30 tabs 10/15/23
nitroglycerin 0.4 mg sublingual tablet 0.4 mg sublingual [id number] PRN chest pressure #30 tabs 10/15/23
rosuvastatin 40 mg tablet 40 mg PO DAILY #30 tabs 10/15/23
Home Medication Changes
Rosuvastatin dose increased to 40 mg daily.
Pending Results: No
--- NOTE | 2023-10-15 14:48 | CM ---
CM following for DC planning needs.
Met w/ patient at bedside. Spouse also present.
Patient is anticipating DC to home today and offers no concerns or needs.
Plan is for home, no needs.
--- NOTE | 2023-10-15 15:51 | W.PN.UPDATE ---
Addendum entered and electronically signed by Derek Ritchie MD 10/15/23 16:37:
I saw and examined the patient.
The Sanitarian Inspector's note was reviewed and I agree with the note.
Comment: Briefly, 77-year-old man past medical history of multivessel CAD with prior PCI approximately 10 years ago who presented on 10/13/2023 following an episode of substernal chest discomfort and found to have elevated troponin consistent with
NSTEMI
Chest pain resolved after approximately an hour and has not recurred
Underwent invasive coronary angiography and found to have patent stents but branch vessel disease with 90% stenosis of a jailed small first diagonal branch
Physical exam is unremarkable, no evidence of decompensated heart failure or mechanical complication of FL
Telemetry reviewed, episode of nonsustained VT this morning, patient tells me he was sleeping at the time and therefore was asymptomatic. TTE with preserved LV function. Electrolytes were repleted. Continue beta-madelyn. Implantable loop recorder is
in place.
Recommendation is for medical management of CAD with aspirin/Plavix, high intensity statin and metoprolol/amlodipine as antianginals. Will also provide a prescription for sublingual nitroglycerin.
Cardiac rehab referral
Outpatient follow-up has been arranged
Stable for discharge from my perspective
Original Note:
Update Note
Progress Note Update
Went into patient's room to inform him that he is okay for discharge. Patient and explained that moving forward they would like to follow-up with our practice, particularly with Dr. Madera rather than traveling all the way down to [address].
Arranged appointment with Dr. Madera for 11/05. He also complained of headache with Imdur, so was transitioned for discharge to Norvasc 2.5 mg daily. Discussed with hospitalist as well as with nursing.
[2023-10-15 15:53] VITALS: BP 113/73
--- NOTE | 2023-10-15 15:58 | W.DS.TRANS ---
DC Summary - Staff Technologist
-
Discharge Instructions:
Discharge Diagnosis/Procedures NSTEMI, cardiac cath
Diet Low Cholesterol,Low Sodium
Activity As tolerated
Driving Restrictions No driving for 24 hours
Bathing Restrictions OK to Shower
Blood Work CBC, BMP/magnesium in 1 week
Other Services Cardiac Rehab
Instructions:
Stand-Alone Forms: DC Instructions- Cath/EP Lab
Changes to Home Medications: Yes
Discharge Medications:
DC Medications w/original date entered in [facility]
aspirin 81 mg tablet,delayed release 81 mg PO DAILY 10/13/23
cholecalciferol (vitamin D3) 25 mcg (1,000 unit) tablet (Vitamin D3) 25 mcg PO DAILY 10/13/23
ezetimibe 10 mg tablet 10 mg PO HS 10/13/23
imiquimod 5 % topical cream packet 1 applic topical DAILYPRN PRN basal cell outbreak 10/13/23
methylcellulose (laxative) 500 mg tablet (Citrucel) 500 mg PO DAILY 10/13/23
metoprolol succinate 25 mg tablet,extended release 24 hr 25 mg PO BID 10/13/23
pantoprazole 20 mg tablet,delayed release 20 mg PO BID 10/13/23
therapeutic multivitamin 1 tab PO DAILY 10/13/23
amlodipine 2.5 mg tablet (Norvasc) 2.5 mg PO DAILY #30 tabs 10/15/23
clopidogrel 75 mg tablet 75 mg PO DAILY #30 tabs 10/15/23
nitroglycerin 0.4 mg sublingual tablet 0.4 mg sublingual [id number] PRN chest pressure #30 tabs 10/15/23
rosuvastatin 40 mg tablet 40 mg PO DAILY #30 tabs 10/15/23
Home Medication Changes
Rosuvastatin dose increased to 40 mg daily.
Pending Results: No
--- NOTE | 2023-10-15 16:32 | PTCARENOTE ---
Patient seen by cardiology and is ok for discharge. Reviewed discharge instructions with the patient and his and they state their understanding. Patient discharged home with his , aware of new prescriptions and follow up care.
== END 2023-10-15 16:43 | disposition home or self-care (01) | DRG 281 ==
LOC: IVU 08:20
PROVIDERS: Emergency Medicine; Internal Medicine Cardiovascular Disease; Nurse Practitioner Adult Health; Physician Assistant; Registered Nurse; ADMITTING PHYSICIAN Hospitalist; ATTENDING PHYSICIAN Hospitalist; EMERGENCY PHYSICIAN Student in an Organized Health Care Education/Training Program; OTHER PHYSICIAN Internal Medicine Cardiovascular Disease
PROC: B2111ZZ Fluoroscopy of Multiple Coronary Arteries using Low Osmolar Contrast (ICD-10-PCS; 2023-10-14)
PROC: B2151ZZ Fluoroscopy of Left Heart using Low Osmolar Contrast (ICD-10-PCS; 2023-10-14)
PROC: 4A023N7 Measurement of Cardiac Sampling and Pressure, Left Heart, Percutaneous Approach (ICD-10-PCS; 2023-10-14)
DX: I21.4 Non-ST elevation (NSTEMI) myocardial infarction (principal); T82.855A Stenosis of coronary artery stent, initial encounter; I25.10 Atherosclerotic heart disease of native coronary artery without angina pectoris; I48.0 Paroxysmal atrial fibrillation; K21.9 Gastro-esophageal reflux disease without esophagitis; E78.5 Hyperlipidemia, unspecified
CPT/HCPCS: 71046; 80048; 80053; 80061; 83735; 84484; 85025; 85027; 85730; 93005; 93306; 93458; 99285; C1894; Q9967